=== PATIENT | male | born 1960 | race Caucasian/White ===

== ENCOUNTER 2016-11-24 01:20 | Emergency (ER) | payer BC, MEDICARE ==
[~2016-11-24] VITALS: Ht 182.9 cm; Wt 109.1 kg
[~2016-11-24 01:20] MED LIST: AMLO5TAB2 PO; INDO50CA PO; LEXA1TAB2 PO; METO100T5 PO; PRAD150C PO
[2016-11-24] MEDS ORDERED: ASPI81TA85 PO (01:50)
[2016-11-24] MEDS ORDERED: RENV2TAB PO (01:50)
[2016-11-24] MEDS ORDERED: LOPR1TAB6 PO (01:50)
[2016-11-24] MEDS ORDERED: STOO100C PO (01:50)
[2016-11-24] MEDS ORDERED: SPIR25TA2 PO (01:50)
--- NOTE | 2016-11-24 04:10 | REPUSA ---
CLINICAL HISTORY: Abdominal pain. TECHNIQUE: Multiple axial, sagittal and coronal CT images were obtained through the abdomen and pelvi s without administration of oral or IV contrast material. COMMENTS: Umbilical hernia containing nonincarcerated small bowels. 2.3 cm adjacent periumbilical subcutaneous fluid collection. Irregular hepatic contour suggestive of parenchymal liver disease. The spleen is moderately enlarged. Mild prostatomegaly. Prostatic calcifications. Diffuse thickening of the wall of the bladder. Moderate ascites. Diffuse mesenteric congestion and edema. Moderate cardiomegaly. Uncomplicated diverticulosis of the colon. Diffuse thickening of the wall of the bladder. There is no intra or extrahepatic biliary ductal dilatation. The spleen is normal. The gallbladder co ntains a gallstone. The pancreas is of normal contour and attenuation characteristics. There is no ev idence of adrenal mass. The kidneys are normal in size, shape and configuration. No renal or ureteral calculi are identified. There is no hydroureter or hydronephrosis. There is no evidence for appendicitis. There is no bowel wall thickening. No evidence for small or la rge bowel obstruction. There is no evidence of intrinsic or extrinsic bladder mass. Images of the lung bases show no evidence of pleural or parenchymal mass. The bony structures are free of lytic or blastic lesions. Multilevel degenerative changes are seen in volving the thoracolumbar spine. Scattered calcifications are seen involving the aorta and major branches compatible with atherosclero sis. IMPRESSION: Cirrhosis. Portal hypertension. Ascites. Umbilical hernia containing nonincarcerated small bowel. Adjacent periumbilical fluid collection. Thank you for your kind referral of this patient.
[2016-11-24 05:09] VITALS: BP 152/68
--- NOTE | 2016-11-26 12:28 | ED PDOC ---
Post-Departure Follow-Up dr raman byrne faxed formal report of ct abd/p for fu tedg Jayme Santiago MD Nov 26, 2016 12:28
== END 2016-11-24 05:09 | disposition home or self-care (01) ==
LOC: M ED 01:20
DX: L76.34 Postprocedural seroma of skin and subcutaneous tissue following other procedure (principal); Z79.82 Long term (current) use of aspirin; Z79.899 Other long term (current) drug therapy

== ENCOUNTER → 2017-01-17 | Outpatient (CLI) | payer BC, MEDICARE ==
[~2017-01-17] MED LIST changes: +ASPI81TA85 PO; +LOPR1TAB6 PO; +RENV2TAB PO; +SPIR25TA2 PO; +STOO100C PO
--- NOTE | 2017-01-17 13:08 | REP ---
PARACENTESIS: The procedure was performed by CIRA Sanders under the direct supervision of Dr. Chang. The procedure along with its risks, benefits and complications were discussed with the patient prior to the examination. Informed consent was obtained both verbally and written. The patient was identified in the ultrasound suite and placed in the supine position. The bilateral lower quadrants were interrogated with ultrasound. The left lower quadrant showed a moderate-sized fluid collection. An appropriate site was chosen for needle entry and this area was marked, prepped and draped in the usual sterile fashion. A procedural time out was performed to ensure that he correct patient, site and procedure were being performed. Local infiltrate of anesthesia was achieved using 1% Xylocaine. A 19-gauge centesis catheter was advanced through the abdominal wall under continuous negative pressure until serous fluid was aspirated. The needle was removed and the catheter was advanced. Approximately 4200 mL of clear yellow fluid was aspirated. The catheter was then removed. Hemostasis was achieved and a soft dressing was applied to the entry site. The patient tolerated the procedure well and had no immediate complications. Reviewed by CIRA Bright 01/17/2017 01:21 PEdited and Signed by Alejandro Chang MD 01/17/2017 08:01 Izzy
== END ==
LOC: M RADPRO 09:50
PROVIDERS: ATTEND Internal Medicine Nephrology
DX: K70.31 Alcoholic cirrhosis of liver with ascites (principal); Z79.82 Long term (current) use of aspirin; Z79.899 Other long term (current) drug therapy

== ENCOUNTER → 2017-03-20 | Outpatient (CLI) | payer BC, MEDICARE ==
--- NOTE | 2017-03-20 09:00 | REP ---
Clinical: Periumbilical pain. Comparison: 11/24/2016. Findings: Rlnqtmak-[id number]-[id number] amount of ascites throughout the abdomen and pelvis has increased from prior examination. Underlying cirrhosis with a subtle nodular contour to the liver cannot be excluded. Spleen, pancreas, gallbladder, bilateral adrenal glands and kidneys appear relatively normal for noncontrast evaluation. Renal cortical lobulations are unchanged and underlying simple/complex cysts cannot be excluded. Granulation tissue along with fluid and stranding is again identified at the periumbilical level extending from the skin surface through the subcutaneous tissues into the peritoneum with obvious postsurgical changes identified (images 100 - 126). Small focal areas of herniation at the site are suspected including a right periumbilical site which contains nonobstructed single loop of bowel (images 102 - 110). No significant associated drainable collection/abscess is identified. However, fistula/sinus tract cannot be excluded and requires physical correlation. No evidence for bowel obstruction. No definite acute inflammatory process to the enteric system is identified. Pelvis demonstrates collapsed bladder and age appropriate prostate/seminal vesicles. No free air. Scattered reactive adenopathy through the mesentery cannot be excluded. No obvious focal mass lesion. Atherosclerotic changes of the aorta and vasculature noted without aneurysm. Musculoskeletal structures are intact. Impression: 1. [id number]-[id number] increased ascites throughout the abdomen and pelvis with a subtle nodular contour to the liver suggesting underlying cirrhosis. 2. Presumed postoperative changes in the periumbilical region with associated granulation tissue and stranding as described above as well as small hernias. Fistula and/or sinus tract cannot be excluded and requires physical correlation. Signed by Taran Whitehead MD 03/20/2017 08:52 A
== END ==
LOC: M RAD 07:12
PROVIDERS: ATTEND Surgery
DX: R10.33 Periumbilical pain (principal)

== ENCOUNTER → 2017-03-21 | Outpatient (CLI) | payer BC, MEDICARE ==
--- NOTE | 2017-03-21 16:30 | REP ---
Ultrasound-guided paracentesis The procedure was performed under the direct supervision of Dr. Noble. The risks and benefits of the procedure were explained to the patient and informed consent was obtained. The largest pocket of fluid was localized in the left flank using ultrasound guidance. The skin was prepped and draped in a sterile fashion. 1% lidocaine was used as a local anesthetic. An 8-[place]izen [place] multi side-hole catheter was inserted using trocar technique. 3,650 ml of aleyda colored fluid was withdrawn and discarded. The patient tolerated the procedure well and there were no immediate complications. After the appropriate amount of monitored convalescence the patient was discharged from the department. Reviewed by CIRA Bateman 03/21/2017 03:55 PSigned by Jacques Noble MD 03/21/2017 04:21 P
== END ==
LOC: M RADPRO 12:21
PROVIDERS: ATTEND Internal Medicine Nephrology
DX: K70.31 Alcoholic cirrhosis of liver with ascites (principal); Z79.82 Long term (current) use of aspirin; Z79.899 Other long term (current) drug therapy
CPT/HCPCS: 49083; P9047

== ENCOUNTER → 2017-07-03 | Outpatient (CLI) | payer MEDICARE, BC ==
[~2017-07-03] MED LIST changes: -AMLO5TAB2 PO; -ASPI81TA85 PO; -INDO50CA PO; -LEXA1TAB2 PO; +LIDOCAINE 1% MDV 20ML VIAL As Ordered; -LOPR1TAB6 PO; -METO100T5 PO; -PRAD150C PO; -RENV2TAB PO; -SPIR25TA2 PO; -STOO100C PO
== END ==
LOC: M RADPRO 11:33
DX: K70.31 Alcoholic cirrhosis of liver with ascites (principal); I48.91 Unspecified atrial fibrillation; I12.9 Hypertensive chronic kidney disease with stage 1 through stage 4 chronic kidney disease, or unspecified chronic kidney disease; N18.3 Chronic kidney disease, stage 3 (moderate); E78.00 Pure hypercholesterolemia, unspecified; Z79.82 Long term (current) use of aspirin; Z79.899 Other long term (current) drug therapy
CPT/HCPCS: 49083

== ENCOUNTER → 2017-08-23 | Outpatient (CLI) | payer MEDICARE, BC | LOC: M RADPRO 11:01 | DX: K70.31 Alcoholic cirrhosis of liver with ascites (principal); Z53.8 Procedure and treatment not carried out for other reasons | CPT/HCPCS: 49083 ==

== ENCOUNTER → 2017-11-15 | Outpatient (CLI) | payer MEDICARE, BC | LOC: M RADPRO 11:39 | DX: K70.31 Alcoholic cirrhosis of liver with ascites (principal); F41.9 Anxiety disorder, unspecified; I48.91 Unspecified atrial fibrillation; Z79.899 Other long term (current) drug therapy | CPT/HCPCS: 49083 ==

== ENCOUNTER → 2018-01-15 | Outpatient (REF) | payer MEDICARE, BC ==
[2018-01-15 14:02] LABS: FERRITIN 32 NG/ML (26-388); IRON (FE) 35 UG/DL (65-175); PERCENT SATURATION 8.4 % (19.7-50.0); TOTAL IRON BINDING CAPACITY 419 UG/DL (250-450)
== END ==
LOC: M LAB REF 13:15
DX: D50.9 Iron deficiency anemia, unspecified (principal)
CPT/HCPCS: 83550

== ENCOUNTER → 2018-06-27 | Outpatient (CLI) | payer MEDICARE, BC ==
[~2018-06-27] MED LIST changes: +AMLO5TAB6 PO; +ASPI81TA85 PO; +INDO50CA PO; +LEXA1TAB2 PO; -LIDOCAINE 1% MDV 20ML VIAL As Ordered; +LOPR1TAB6 PO; +METO100T5 PO; +PRAD150C PO; +RENV2TAB PO; +SPIR-10 PO; +STOO100C PO
--- NOTE | 2018-06-27 09:55 | REP ---
LIMITED ABDOMINAL ULTRASOUND: Limited abdominal ultrasound was performed to evaluate for ascites prior to a scheduled paracentesis. Very mild ascites fluid is seen scattered throughout the abdomen. It is not felt that there is sufficient fluid for paracentesis to be beneficial and therapeutic at this time. Patient agreed and paracentesis is postponed. Electronically Signed by Alejandro Chang MD 06/30/2018 10:56 A
== END ==
LOC: M RADPRO 08:39
PROVIDERS: ATTEND Internal Medicine Nephrology
DX: K70.31 Alcoholic cirrhosis of liver with ascites (principal)

== ENCOUNTER → 2020-03-01 | Outpatient (REF) | payer MEDICARE, BC ==
[~2020-03-01] MED LIST changes: +AMLO1TAB24 PO; -AMLO5TAB6 PO; -ASPI81TA85 PO; +ASPI81TA86 PO; -INDO50CA PO; +INDO50CA91 PO; +MM S100C PO; -PRAD150C PO; +PRAD150C6 PO; -STOO100C PO
== END ==
LOC: M LAB REF 17:06
PROVIDERS: ATTEND Internal Medicine Nephrology
DX: D50.9 Iron deficiency anemia, unspecified (principal)

== ENCOUNTER 2020-03-02 13:27 | Outpatient (CLI) | payer MEDICARE, BC ==
[~2020-03-02] VITALS: Ht 180.3 cm; Wt 93.8 kg
[2020-03-02] MEDS ORDERED: diphenhydrAMINE 50MG/ML VIAL (J1200) IV PRN (13:30)
[2020-03-02] MEDS ORDERED: methylPREDNISolone 125MG 2ML VIAL IV PRN (13:30)
[2020-03-02] MEDS ORDERED: ALBUTEROL SULFATE 2.5 MG/0.5 ML INH NEB SOLN INH PRN (13:30)
[2020-03-02] MEDS ORDERED: FERRIC CARBOXYMALTOSE INJ 750 MG in NS 250 ML IV ONE (13:30)
[2020-03-02] MEDS ORDERED: NS 1,000 ML IV SCH (13:30)
[2020-03-02] MEDS ORDERED: EPINEPHrine INJ 1 MG/ML 1ML AMP IM PRN (13:30)
[2020-03-02 13:55] VITALS: BP 131/88
[2020-03-02 14:50] VITALS: BP 113/66
[2020-03-02 17:30] VITALS: BP 132/86
== END 2020-03-02 17:30 | disposition home or self-care (01) ==
LOC: M INFU 13:27
PROVIDERS: ATTEND Internal Medicine Nephrology
DX: D50.9 Iron deficiency anemia, unspecified (principal)
CPT/HCPCS: 96365; 96366; J1439

== ENCOUNTER → 2020-08-26 | Outpatient (REF) | payer MEDICARE, BC ==
[2020-08-26 18:15] LABS: PERCENT SATURATION 11.9 % (19.7-50.0)
== END ==
LOC: M LAB REF 17:11
PROVIDERS: ATTEND Internal Medicine Nephrology
DX: D50.9 Iron deficiency anemia, unspecified (principal)

== ENCOUNTER → 2020-10-20 | Outpatient (CLI) | payer MEDICARE, BC ==
[~2020-10-20] MED LIST changes: +CENT1TAB2 PO; +FERR325T3 PO; +PANT40TA29 PO; +SILD100T PO; +SODIUM BICARBONATE 8.4% INJ 50MEQ 50 ML VIAL As Ordered ONE; +VITAMIN D 3 PO
[2020-10-20 11:03] LABS: HEMATOCRIT 31.1 % (42.0-52.0); HEMOGLOBIN 9.4 g/dl (13.5-17.5); MEAN CORPUSCULAR HEMOGLOBIN 30.7 pg (27.0-33.0); MEAN CORPUSCULAR HGB CONC 30.2 g/dl (32.0-36.5); MEAN CORPUSCULAR VOLUME 101.6 fl (80.0-96.0); PLATELET COUNT, AUTOMATED 157 10^3/uL (150-450); RED BLOOD COUNT 3.06 10^6/uL (4.30-6.10); WHITE BLOOD COUNT 3.7 10^3/uL (4.0-10.0)
[2020-10-20 11:15] LABS: INR 1.08; PROTHROMBIN TIME 14.2 SECONDS (12.5-14.3)
[2020-10-20 11:16] LABS: PARTIAL THROMBOPLASTIN TIME 28.5 SECONDS (24.2-38.5)
[2020-10-20 12:05] VITALS: BP 142/91
--- NOTE | 2020-10-20 12:49 | REP ---
INDICATION: ASCITES The patient has a history of ascites COMPARISON: None. TECHNIQUE: The procedure was performed by CIRA Camacho, under the direct supervision of Dr. Noble The risks and benefits of the procedure were explained to the patient and an informed consent was obtained both verbally and written. Directly prior to the start of the procedure a formal time-out was completed in the procedure room. The largest pocket of fluid was localized in the right flank using ultrasound guidance. The skin was prepped and draped in a sterile fashion. Eleven ML of buffered lidocaine was used as a local anesthetic. An 8-[place] multi side-hole catheter was inserted using trocar technique. FINDINGS: 4900 mL of yellow ascites was removed and discarded. The patient tolerated the procedure well and there were no immediate complications. After the appropriate amount of monitored convalescence, the patient was discharged from the department. IMPRESSION: Ultrasound-guided paracentesis with removal of 4900 mL of yellow ascites. <Electronically signed by Isabel Hester > 10/20/20 1235 <Electronically signed by Avelino Noble > 10/20/20 1246
== END ==
LOC: M IRPRO 09:48
PROVIDERS: ATTEND Internal Medicine Nephrology
DX: K70.31 Alcoholic cirrhosis of liver with ascites (principal); N18.4 Chronic kidney disease, stage 4 (severe)

== ENCOUNTER → 2020-11-29 | Outpatient (REF) | payer MEDICARE, BC ==
[~2020-11-29] MED LIST changes: -SODIUM BICARBONATE 8.4% INJ 50MEQ 50 ML VIAL As Ordered ONE
[2020-11-29 18:18] LABS: PERCENT SATURATION 32.5 % (19.7-50.0)
== END ==
LOC: M LAB REF 17:07
PROVIDERS: ATTEND Internal Medicine Nephrology
DX: D50.9 Iron deficiency anemia, unspecified (principal)

== ENCOUNTER → 2020-12-09 | Outpatient (CLI) | payer MEDICARE, BC ==
[2020-12-09 13:10] VITALS: BP 132/80
--- NOTE | 2020-12-14 15:21 | REP ---
INDICATION: CIRRHOSIS ASCITES. COMPARISON: None. TECHNIQUE: The procedure was performed under the direct supervision of Dr. Chang. The risks and benefits of the procedure were explained to the patient and informed consent was obtained. The largest pocket of fluid was localized in the left lower quadrant using ultrasound guidance. The skin was prepped and draped in a sterile fashion. 5 mL of 1% lidocaine was used as a local anesthetic. An 8-[place] multi side-hole catheter was inserted using trocar technique.4400 mL of yellow fluid was withdrawn and discarded. Estimated blood loss: Less than 1 mL The patient tolerated the procedure well and there were no immediate complications. After the appropriate amount of monitored convalescence, the patient was discharged from the department. FINDINGS: None IMPRESSION: Ultrasound-guided paracentesis [id number] mL of yellow fluid. <Electronically signed by Chacho Boyd > 12/09/20 [id number] <Electronically signed by Alejandro Chang > 12/09/20 [id number]
== END ==
LOC: M IRPRO 12:27
PROVIDERS: ATTEND Internal Medicine Nephrology
DX: K70.31 Alcoholic cirrhosis of liver with ascites (principal); M18.4 Other bilateral secondary osteoarthritis of first carpometacarpal joints

== ENCOUNTER → 2021-01-13 | Outpatient (CLI) | payer MEDICARE, BC ==
[~2021-01-13] MED LIST changes: +SODIUM BICARBONATE 8.4% INJ 50MEQ 50 ML VIAL As Ordered ONE
[2021-01-13 13:24] VITALS: BP 151/84
--- NOTE | 2021-01-13 14:29 | REP ---
INDICATION: ASCITES The patient has a history of ascites COMPARISON: None. TECHNIQUE: The procedure was performed by CIRA Camacho, under the direct supervision of Dr. Chang The risks and benefits of the procedure were explained to the patient and an informed consent was obtained both verbally and written. Directly prior to the start of the procedure a formal time-out was completed in the procedure room. The largest pocket of fluid was localized in the left flank using ultrasound guidance. The skin was prepped and draped in a sterile fashion. Eleven ML of buffered lidocaine was used as a local anesthetic. An 8-[place] multi side-hole catheter was inserted using trocar technique. FINDINGS: 1600 mL of cloudy yellow ascites was removed and discarded. The patient tolerated the procedure well and there were no immediate complications. After the appropriate amount of monitored convalescence, the patient was discharged from the department. IMPRESSION: Ultrasound-guided paracentesis with removal of 1600 mL of cloudy yellow ascites. <Electronically signed by Isabel Hester > 01/13/21 1333 <Electronically signed by Alejandro Chang > 01/13/21 [id number]
== END ==
LOC: M IRPRO 12:32
PROVIDERS: ATTEND Internal Medicine Nephrology
DX: K70.31 Alcoholic cirrhosis of liver with ascites (principal)

== ENCOUNTER → 2021-01-19 | Outpatient (REF) | payer MEDICARE, BC ==
[~2021-01-19] MED LIST changes: -SODIUM BICARBONATE 8.4% INJ 50MEQ 50 ML VIAL As Ordered ONE
== END ==
LOC: M LAB REF 14:07
PROVIDERS: ATTEND Internal Medicine Nephrology
DX: D50.9 Iron deficiency anemia, unspecified (principal)

== ENCOUNTER → 2021-08-08 | Outpatient (REF) | payer MEDICARE, BC ==
[2021-08-08 17:39] LABS: PERCENT SATURATION 12.9 % (19.7-50.0)
== END ==
LOC: M LAB REF 16:43
PROVIDERS: ATTEND Internal Medicine Nephrology
DX: D50.9 Iron deficiency anemia, unspecified (principal)

== ENCOUNTER → 2021-10-16 | Outpatient (REF) | payer MEDICARE, BC ==
[2021-10-16 17:53] LABS: PERCENT SATURATION 49.9 % (19.7-50.0)
== END ==
LOC: M LAB REF 16:58
PROVIDERS: ATTEND Internal Medicine Nephrology
DX: D50.9 Iron deficiency anemia, unspecified (principal)

== ENCOUNTER → 2022-01-25 | Outpatient (REF) | payer MEDICARE, BC ==
[2022-01-25 18:06] LABS: PERCENT SATURATION 5.6 % (19.7-50.0)
== END ==
LOC: M LAB REF 16:58
PROVIDERS: ATTEND Internal Medicine Nephrology
DX: D50.9 Iron deficiency anemia, unspecified (principal)

== ENCOUNTER 2022-02-01 12:13 | Outpatient (CLI) | payer MEDICARE, BC ==
[~2022-02-01 12:13] MED LIST changes: +ALBUTEROL SULFATE 2.5 MG/0.5 ML INH NEB SOLN INH PRN; +EPINEPHrine INJ 1 MG/ML 1ML AMP IM PRN; +diphenhydrAMINE 50MG/ML VIAL (J1200) IV PRN; +methylPREDNISolone 125MG 2ML VIAL IV PRN
[2022-02-01] MEDS ORDERED: FERRIC CARBOXYMALTOSE INJ 750 MG in NS 250 ML (>50kg) IV ONE ×3 (12:30)
[2022-02-01] MEDS ORDERED: NS 1,000 ML IV SCH (12:30)
[2022-02-01 12:43] VITALS: BP 101/66
[2022-02-01 14:00] VITALS: BP 128/72
== END 2022-02-01 14:00 | disposition home or self-care (01) ==
LOC: M INFU 12:13
PROVIDERS: ATTEND Internal Medicine Nephrology
DX: D50.9 Iron deficiency anemia, unspecified (principal)
CPT/HCPCS: 96365; J1439

== ENCOUNTER 2022-02-08 12:30 | Outpatient (CLI) | payer MEDICARE, BC ==
[~2022-02-08] VITALS: Ht 180.3 cm; Wt 117.9 kg
[~2022-02-08 12:30] MED LIST changes: +FERRIC CARBOXYMALTOSE INJ 750 MG in NS 250 ML (>50kg) IV ONE; +NS 1,000 ML IV SCH
[2022-02-08 12:42] VITALS: BP 97/53
[2022-02-08 13:54] VITALS: BP 123/63
== END 2022-02-08 14:00 | disposition home or self-care (01) ==
LOC: M INFU 12:30
PROVIDERS: ATTEND Internal Medicine Nephrology
DX: D50.9 Iron deficiency anemia, unspecified (principal)
CPT/HCPCS: 96365; J1439

== ENCOUNTER → 2022-08-09 | Outpatient (REF) | payer MEDICARE, BC ==
[~2022-08-09] MED LIST changes: -ALBUTEROL SULFATE 2.5 MG/0.5 ML INH NEB SOLN INH PRN; -EPINEPHrine INJ 1 MG/ML 1ML AMP IM PRN; -FERRIC CARBOXYMALTOSE INJ 750 MG in NS 250 ML (>50kg) IV ONE; -NS 1,000 ML IV SCH; -diphenhydrAMINE 50MG/ML VIAL (J1200) IV PRN; -methylPREDNISolone 125MG 2ML VIAL IV PRN
[2022-08-09 18:14] LABS: PERCENT SATURATION 42.5 % (19.7-50.0)
[2022-08-09 18:17] LABS: FERRITIN 22.7 NG/ML (10.5-307.3)
== END ==
LOC: M LAB REF 17:30
PROVIDERS: ATTEND Internal Medicine Nephrology
DX: D50.9 Iron deficiency anemia, unspecified (principal)

== ENCOUNTER → 2023-03-29 | Outpatient (REF) | payer MEDICARE, BC ==
[2023-03-29 18:22] LABS: FERRITIN 17.2 NG/ML (10.5-307.3)
== END ==
LOC: M LAB REF 17:23
PROVIDERS: ATTEND Internal Medicine Nephrology
DX: D50.9 Iron deficiency anemia, unspecified (principal)

== ENCOUNTER 2023-11-12 07:52 | Outpatient (CLI) | payer MEDICARE, BC ==
[~2023-11-12] VITALS: Ht 182.9 cm; Wt 117.2 kg
[~2023-11-12 07:52] MED LIST changes: +ALBUTEROL SULFATE 2.5MG/0.5ML INH NEB SOLN INH PRN; +EPINEPHrine INJ 1 MG/ML 1ML AMP IM PRN; +diphenhydrAMINE 50MG/ML VIAL IV PRN; +methylPREDNISolone 125MG 2ML VIAL IV PRN
[2023-11-12] MEDS ORDERED: NS 1,000 ML IV SCH (08:00)
[2023-11-12 08:30] VITALS: BP 120/77; O2SAT 98
[2023-11-12] MEDS: IRON SUCROSE 25 MG in NS 23.75 ML IV ONE (08:57)
[2023-11-12] MEDS: IRON SUCROSE 375 MG in NS 250 ML IV ONE (09:48)
[2023-11-12 10:30] VITALS: BP 131/66; O2SAT 100
[2023-11-12 11:30] VITALS: BP 141/71; O2SAT 100
[2023-11-12 12:30] VITALS: BP 151/79; O2SAT 100
== END 2023-11-12 12:35 ==
LOC: M INFU 07:52
PROVIDERS: ATTEND Internal Medicine Nephrology
DX: D50.9 Iron deficiency anemia, unspecified (principal)
CPT/HCPCS: 96365; 96366; J1756

== ENCOUNTER → 2023-11-15 | Outpatient (REF) | payer MEDICARE, BC ==
[~2023-11-15] MED LIST changes: -ALBUTEROL SULFATE 2.5MG/0.5ML INH NEB SOLN INH PRN; -EPINEPHrine INJ 1 MG/ML 1ML AMP IM PRN; -diphenhydrAMINE 50MG/ML VIAL IV PRN; -methylPREDNISolone 125MG 2ML VIAL IV PRN
[2023-11-15 18:33] LABS: PERCENT SATURATION 44.4 % (19.7-50.0)
[2023-11-15 18:37] LABS: FERRITIN 152.5 NG/ML (10.5-307.3)
== END ==
LOC: M LAB REF 17:07
PROVIDERS: ATTEND Internal Medicine Nephrology
DX: D50.9 Iron deficiency anemia, unspecified (principal)

== ENCOUNTER 2023-11-26 08:04 | Outpatient (CLI) | payer MEDICARE, BC ==
[~2023-11-26] VITALS: Ht 182.9 cm; Wt 118.2 kg
[~2023-11-26 08:04] MED LIST changes: +ALBUTEROL SULFATE 2.5MG/0.5ML INH NEB SOLN INH PRN; +EPINEPHrine INJ 1 MG/ML 1ML AMP IM PRN; +NS 1,000 ML IV SCH; +diphenhydrAMINE 50MG/ML VIAL IV PRN; +methylPREDNISolone 125MG 2ML VIAL IV PRN
[2023-11-26 08:15] VITALS: BP 104/56; O2SAT 99
[2023-11-26] MEDS: IRON SUCROSE 400 MG in NS 250 ML OVER 2.5 HRS IV ONE (09:02)
[2023-11-26 10:00] VITALS: BP 110/64; O2SAT 98
[2023-11-26 11:00] VITALS: BP 130/59; O2SAT 100
[2023-11-26 11:50] VITALS: BP 150/75; O2SAT 100
== END 2023-11-26 11:50 ==
LOC: M INFU 08:04
PROVIDERS: ATTEND Internal Medicine Nephrology
DX: D50.9 Iron deficiency anemia, unspecified (principal)
CPT/HCPCS: 96365; 96366; J1756

== ENCOUNTER → 2024-01-16 | Outpatient (CLI) | payer MEDICARE, BC ==
[~2024-01-16] MED LIST changes: -ALBUTEROL SULFATE 2.5MG/0.5ML INH NEB SOLN INH PRN; -EPINEPHrine INJ 1 MG/ML 1ML AMP IM PRN; -NS 1,000 ML IV SCH; -diphenhydrAMINE 50MG/ML VIAL IV PRN; -methylPREDNISolone 125MG 2ML VIAL IV PRN
[2024-01-16 10:07] VITALS: TEMP 97.1
[2024-01-16 11:34] VITALS: BP 116/74; O2SAT 97
== END ==
LOC: M IRPRO 09:56
PROVIDERS: ATTEND Internal Medicine Nephrology
DX: K70.31 Alcoholic cirrhosis of liver with ascites (principal); N18.4 Chronic kidney disease, stage 4 (severe)

== ENCOUNTER → 2024-02-18 | Outpatient (REF) | payer MEDICARE, BC ==
[2024-02-18 18:17] LABS: PERCENT SATURATION 6.6 % (19.7-50.0)
[2024-02-18 18:19] LABS: FERRITIN 11.7 NG/ML (10.5-307.3)
== END ==
LOC: M LAB REF 17:44
PROVIDERS: ATTEND Internal Medicine Nephrology
DX: D50.9 Iron deficiency anemia, unspecified (principal)

== ENCOUNTER → 2024-02-18 | Outpatient (CLI) | payer MEDICARE, BC ==
[2024-02-18 14:20] VITALS: TEMP 96.4
[2024-02-18 14:47] VITALS: BP 112/70; O2SAT 100
== END ==
LOC: M IRPRO 14:11
PROVIDERS: ATTEND Internal Medicine Nephrology
DX: K70.31 Alcoholic cirrhosis of liver with ascites (principal); N18.4 Chronic kidney disease, stage 4 (severe); D50.9 Iron deficiency anemia, unspecified

== ENCOUNTER → 2024-10-30 | Outpatient (CLI) | payer BC, MEDICARE ==
[2024-10-30 11:25] VITALS: TEMP 97.5
[2024-10-30 12:08] VITALS: BP 115/67; O2SAT 98
== END ==
LOC: M IRPRO 11:15
PROVIDERS: ATTEND Family Medicine
DX: K70.31 Alcoholic cirrhosis of liver with ascites (principal)

== ENCOUNTER → 2024-11-19 | Outpatient (CLI) | payer MEDICARE ==
[~2024-11-19] MED LIST changes: +ASPI81TA26 PO
[2024-11-19 09:20] VITALS: TEMP 97.3
[2024-11-19 10:28] VITALS: BP 117/71; O2SAT 100
[2024-11-19 10:30] VITALS: BP 117/71; O2SAT 100
== END ==
LOC: M IRPRO 09:05
PROVIDERS: ATTEND Nurse Practitioner Family
DX: R18.8 Other ascites (principal)
CPT/HCPCS: 49083; P9047

== ENCOUNTER → 2024-12-02 | Outpatient (CLI) | payer MEDICARE ==
[2024-12-02 10:25] VITALS: TEMP 97.1
[2024-12-02 11:13] VITALS: BP 141/66; O2SAT 100
[2024-12-02 11:17] VITALS: BP 134/70; O2SAT 99
[2024-12-02 11:22] VITALS: BP 126/82; O2SAT 99
== END ==
LOC: M IRPRO 10:15
PROVIDERS: ATTEND Nurse Practitioner Family
DX: K70.31 Alcoholic cirrhosis of liver with ascites (principal)
CPT/HCPCS: 49083; 96374; P9047